=== PATIENT | female | born 1995 | race Caucasian/White ===

== ENCOUNTER 2018-07-14 10:20 | Emergency (ER) | payer MEDICAID ==
[~2018-07-14] VITALS: Ht 160 cm; Wt 90.7 kg
[2018-07-14 11:09] VITALS: BP_SYST 147
--- NOTE | 2018-07-14 13:07 | NUR ---
Patient seen in triage by Vida GUERIN.
--- NOTE | 2018-07-14 13:08 | NUR ---
Pt brought by self,A&Ox4, pt presents to ER for Rx refill ,states she changed her PCP and unable to get her mends, pt requesting Gabapentin 800 mg TID, depakote 500mg AM & 750mg qhs, Zyprexa 20mg qhs, pt denies pain VSS.
--- NOTE | 2018-07-14 13:09 | NUR ---
Florencia nelson in ED - 07/14/18 at 1313 by [email or web address] Vida Patino completing MSE at triage room
--- NOTE | 2018-07-14 13:31 | NUR ---
Patient given written and verbal discharge instructions and verbalizes understanding. ER MD discussed with patient the results and treatment provided. Patient in stable condition. ID arm band removed. Rx of Divalproex, Gabapentin,Olanzapine given. Patient educated on pain management and to follow up with PMD. Pain Scale 0/10 . Opportunity for questions provided and answered. Medication side effect fact sheet provided.
[2018-07-14 13:32] VITALS: BP_SYST 142
== END 2018-07-14 13:31 | disposition home or self-care (01) ==
LOC: SED 10:20
DX: Z76.0 Encounter for issue of repeat prescription (principal); F31.9 Bipolar disorder, unspecified; R03.0 Elevated blood-pressure reading, without diagnosis of hypertension
CPT/HCPCS: 99283